=== PATIENT | female | born 1980 | race Caucasian/White ===

== ENCOUNTER 2017-06-12 17:34 | Inpatient (IN) | payer BC ==
[2017-06-13] MEDS ORDERED: fentaNYL* 50 MCG/ML 2 ML VIAL (100 MCG VIAL) IV SLOW PU ONE ×2 (02:01→06:05)
[2017-06-13] MEDS ORDERED: Ondansetron INJ* 2 MG/ML VIAL IV ONE ×2 (02:03→06:05)
[2017-06-13] MEDS ORDERED: fentaNYL* 50 MCG/ML 2 ML VIAL (100 MCG VIAL) ONE (02:05)
[2017-06-13 02:15] LABS: Hematocrit 38 % (35-47); Mean Corpuscular HGB Conc 34 g/dl (31-36); Mean Corpuscular Hemoglobin 32 pg (27-31); Mean Corpuscular Volume 95 fL (80-97); Mean Platelet Volume 10 um3 (7.4-10.4); Platelet Count 169 10^3/ul (150-450); Red Blood Count 4.03 10^6/ul (4.0-5.4); Red Cell Distribution Width 14 % (10.5-15); White Blood Count 17.3 10^3/ul (3.5-10.8)
[2017-06-13] MEDS ORDERED: Ondansetron INJ* 2 MG/ML VIAL ONE (02:20)
[2017-06-13] MEDS ORDERED: OBEPIDURAL* 250 ML EPIDURAL ONE (10:04)
[2017-06-13] MEDS ORDERED: Sodium Citrate/Citric Acid* 15 ML UDC PO PRN (12:51)
[2017-06-13] MEDS ORDERED: EPHEDrine (Pressors)* 50 MG/ML VIAL IV PUSH PRN ×2 (12:51)
[2017-06-13] MEDS ORDERED: Famotidine TAB* 20 MG PO PRN (12:51)
[2017-06-13] MEDS ORDERED: Phenylephrine IV* 40 MCG/ML 10 ML SYRINGE IV PUSH PRN ×2 (12:51)
[2017-06-13] MEDS ORDERED: Oxytocin in LR* 20 UNITS/1,000 ML BAG IVPB SCH (16:00)
[2017-06-13] MEDS ORDERED: ceFOXitin 2 GM IVPREMIX* 2 GM/50 ML BAG ONE (19:32)
[2017-06-13] MEDS ORDERED: Sodium Citrate/Citric Acid* 15 ML UDC ONE (19:32)
[2017-06-13] MEDS ORDERED: Lidocaine 2% PF* 10 ML AMP ONE (19:44)
[2017-06-13] MEDS ORDERED: OXYTOCIN* 10 UNITS/ML 1 ML VIAL ONE (19:44)
[2017-06-13] MEDS ORDERED: Morphine PF AMP (0.5MG/ML)* 5 MG/10 ML AMP ONE (20:27)
[2017-06-13] MEDS ORDERED: Naloxone* 0.4 MG/ML 1 ML VIAL IV PRN ×2 (20:38→20:39)
[2017-06-13] MEDS ORDERED: Nalbuphine* 20 MG/ML 1 ML VIAL IV PRN (20:39)
[2017-06-13] MEDS ORDERED: Ondansetron INJ* 2 MG/ML VIAL IV PRN (20:39)
[2017-06-13] MEDS ORDERED: Witch Hazel PAD* JAR TOPICAL PRN (21:09)
[2017-06-13] MEDS ORDERED: RHO D Immune Globulin (HUMAN)* 300 MCG = 1,500 I.U. INJ IM ONE (21:09)
[2017-06-13] MEDS: Ketorolac INJ* 30 MG/ML 1 ML VIAL IV PUSH SCH (22:41)
[2017-06-14] MEDS ORDERED: oxyCODONE/Acetamin 5/325 MG* TAB ONE (00:03)
[2017-06-14] MEDS: oxyCODONE/Acetamin 5/325 MG* TAB PO PRN ×4 (00:15→20:27)
--- NOTE | 2017-06-14 01:58 | OP ---
DATE OF OPERATION: 06/13/17 - ROOMO #[id number] DATE OF : 82 SURGEON: Frantz Lazar MD STRATEGIC PLANNING CONSULTANT: Jasmine Vital LM. ANESTHESIOLOGIST: Dr. George. ANESTHESIA: Epidural. PRE-OP DIAGNOSES: 39 plus 3 weeks' gestation with arrest of dilation, thick meconium. POST-OP DIAGNOSES: 39 plus 3 weeks' gestation with arrest of dilation, thick meconium. OPERATIVE PROCEDURE: Primary low transverse section. ESTIMATED BLOOD LOSS: 800 cc. URINE OUTPUT: 600 cc. IV FLUIDS: 1000 cc lactated Ringer's. MATERIALS TO LAB: Cord blood and cord gases. INDICATIONS: This patient was a 37-year-old 4, para 0, who presented at 39 plus 3 weeks' gestation with early active labor. The patient had rupture of membranes which noted thick meconium, but there was very reassuring monitoring throughout her labor. The patient received an epidural and had Pitocin for augmentation of her labor. Despite excellent contractions for several hours, she did not have any progression past about 5 cm dilation. Considering this, the decision was made to proceed with a primary section for arrest of dilation. FINDINGS: Very thick meconium within the uterus. was quite large with very broad shoulders and the patient was noted to have a fairly narrow pelvis. Delivery was productive of a male weighing 9 pounds 3 ounces and time of delivery was 2016. Apgars were 1 and 9 with a first low due to the need for significant suctioning of the meconium in the trachea. COMPLICATIONS: None. DESCRIPTION OF PROCEDURE: The risks, benefits, and alternatives were described to the patient and informed consent was obtained. The patient was taken to the operating room with IV running where epidural anesthesia was induced and found to be adequate. The patient was prepped and draped in the normal sterile fashion in the dorsal supine position with leftward tilt. A Pfannenstiel skin incision was made with a scalpel and this was carried down to the underlying fascia sharply. The fascia was then scored in the midline with the scalpel. The incision was extended using Aguilar scissors. The rectus muscles were dissected off the rectus fascia using blunt and sharp dissection. The rectus muscles were in the midline bluntly. The peritoneum was also entered bluntly. A bladder blade was placed. A bladder flap was created sharply using Metzenbaum scissors. A low transverse uterine incision was made with the scalpel. This was carried down to the amniotic cavity which was productive of very thick meconium stained fluid. The incision was extended with blunt traction. The head was elevated to the level of the incision without difficulty and delivered through the incision. The shoulders were tight in the incision, so the lower arm was able to get delivered. The upper shoulder was still quite difficult, but successfully delivered as well. With fundal pressure , the body then delivered without difficulty. The had good tone and cried immediately on delivery. The cord was doubly clamped and cut. The infant was then handed to the awaiting it network administrator. Cord blood was collected. The placenta then delivered with manual extraction. The uterus was then exteriorized and cleared of all clots and debris. The uterine incision was reapproximated using 0 Polysorb in a running-locked fashion. A second layer of imbricating sutures of 0 Polysorb was also placed with good hemostasis. The posterior cul-de-sac was irrigated with saline. The uterus was then returned to the abdomen, and the incision was reinspected and noted to be hemostatic. The peritoneum was closed with 3-0 Polysorb in a running fashion. The fascia was closed with 0 Polysorb in a running fashion. The subcutaneous tissues were reapproximated using 3-0 Polysorb in interrupted sutures. The skin was then closed with 4-0 Monocryl in a subcuticular stitch. Mastisol and Steri-Strips were placed over the incision which was then covered with a sterile bandage. The patient tolerated the procedure well. Sponge, lap, and needle counts were correct x2. [id number]/[facility] #: [id number] [facility] HILL HOSPITALSebastien
[2017-06-14] MEDS: Ibuprofen TAB* 400 MG PO SCH ×3 (04:45→10:16)
[2017-06-14 06:24] LABS: ABS Basophils 0 10^3/ul (0-0.2); ABS Eosinophils 0 10^3/ul (0-0.6); ABS Lymphocytes 1.6 10^3/ul (1.0-4.8); ABS Monocytes 1.4 10^3/ul (0-0.8); ABS Neutrophils 12.8 10^3/ul (1.5-7.7); ABS Nucleated RBC 0 10^3/ul; Eosinophil % 0.1 % (0-6); Hematocrit 32 % (35-47); Hemoglobin 10.9 g/dl (12.0-16.0); Lymphocyte % 9.8 % (25-47); Mean Corpuscular HGB Conc 34 g/dl (31-36); Mean Corpuscular Hemoglobin 33 pg (27-31); Mean Corpuscular Volume 96 fL (80-97); Mean Platelet Volume 10 um3 (7.4-10.4); Nucleated Red Blood Cells % 0; Platelet Count 130 10^3/ul (150-450); Red Blood Count 3.34 10^6/ul (4.0-5.4); Red Cell Distribution Width 15 % (10.5-15); White Blood Count 15.9 10^3/ul (3.5-10.8)
[2017-06-14] MEDS: Simethicone TAB* 80 MG TAB.CHEW PO SCH ×4 (08:48→20:27)
[2017-06-14] MEDS: Docusate CAP* 100 MG PO SCH ×3 (08:48→20:27)
[2017-06-14] MEDS ORDERED: Ferrous Gluconate TAB* 324 MG TAB PO SCH (09:00)
[2017-06-14] MEDS ORDERED: Ibuprofen TAB* 600 MG ONE (15:54)
[2017-06-14] MEDS: Ibuprofen TAB* 600 MG PO SCH ×2 (16:00→22:52)
[2017-06-14] MEDS ORDERED: Ibuprofen TAB* 600 MG PO SCH (22:00)
[2017-06-15] MEDS: oxyCODONE/Acetamin 5/325 MG* TAB PO PRN ×5 (02:53→20:25)
[2017-06-15] MEDS: Ibuprofen TAB* 600 MG PO SCH ×3 (03:52→16:22)
[2017-06-15] MEDS: Docusate CAP* 100 MG PO SCH ×3 (08:05→20:25)
[2017-06-15] MEDS: Simethicone TAB* 80 MG TAB.CHEW PO SCH ×4 (08:06→20:25)
[2017-06-15] MEDS: Ketorolac INJ* 30 MG/ML 1 ML VIAL IV PUSH SCH (20:34)
[2017-06-15] MEDS: OBEPIDURAL* 250 ML EPIDURAL SCH (20:35)
[2017-06-16] MEDS: Ibuprofen TAB* 600 MG PO SCH ×3 (01:14→16:00)
[2017-06-16] MEDS: oxyCODONE/Acetamin 5/325 MG* TAB PO PRN ×4 (01:16→14:23)
[2017-06-16] MEDS: Docusate CAP* 100 MG PO SCH ×2 (07:37→14:23)
[2017-06-16] MEDS: Simethicone TAB* 80 MG TAB.CHEW PO SCH ×2 (07:37→14:23)
[2017-06-16 08:24] VITALS: BP 135/85
--- NOTE | 2017-06-16 13:37 | PTEDU ---
Patient Name: JUDY GOLDBERG JUDY GOLDBERG selected video: Never Ever Shake a Baby to view on 06/16/2017 at 1:36:48 PM [id number]
== END 2017-06-16 16:20 | disposition home or self-care (01) | DRG 540 ==
LOC: MCHOBOUT 17:34 → MCHOB 19:56
PROVIDERS: ADMIT Midwife; ATTEND Midwife
PROC: 10907ZC Drainage of Amniotic Fluid, Therapeutic from Products of Conception, Via Natural or Artificial Opening (ICD-10-PCS; 2017-06-13)
PROC: 10D00Z1 Extraction of Products of Conception, Low, Open Approach (ICD-10-PCS; principal; 2017-06-13 19:58)
DX: O62.0 Primary inadequate contractions (principal); O77.0 Labor and delivery complicated by meconium in amniotic fluid; Z3A.39 39 weeks gestation of pregnancy; Z37.0 Single live birth
CPT/HCPCS: 36415; 85025; 85027; 85461; 86850; 86900; 86901; A9270-GY; J0694; J1885; J2001; J2405; J2590; J2790; J3010

== ENCOUNTER 2019-12-13 12:30 | Inpatient (IN) ==
[2019-12-13 13:41] LABS: Hematocrit 39 % (35-47); Mean Corpuscular HGB Conc 34 g/dL (31-36); Mean Corpuscular Hemoglobin 32 pg (27-31); Mean Corpuscular Volume 96 fL (80-97); Mean Platelet Volume 7.9 fL (7.4-10.4); Platelet Count 317 10^3/uL (150-450); Red Blood Count 4.02 10^6 /uL (3.70-4.87); Red Cell Distribution Width 14 % (10-15); White Blood Count 10.1 10^3/uL (3.5-10.8)
[2019-12-13] MEDS ORDERED: Lactated Ringers 1000 ml BAG 1,000 ML IV ONE (14:41)
[2019-12-13 14:54] LABS: Urine Benzodiazepine Screen None Detected (None Detect); Urine Opiates Screen None Detected (None Detect)
[2019-12-13] MEDS ORDERED: Lactated Ringers 1000 ml BAG 1,000 ML IV SCH ×2 (15:00→17:00)
[2019-12-13] MEDS ORDERED: ceFOXitin 2 GM IVPREMIX (*) 2 GM/50 ML BAG IVPB ONE (15:03)
[2019-12-13] MEDS ORDERED: Sodium Citrate/Citric Acid LIQ 15 ML UDC ONE (15:14)
[2019-12-13] MEDS ORDERED: Oxytocin 10 UNITS/ML 1 ML VIAL ONE (15:24)
[2019-12-13] MEDS ORDERED: Morphine PF AMP (0.5MG/ML) 5 MG/10 ML AMP ONE (15:24)
[2019-12-13] MEDS ORDERED: Bupivacaine 0.5% SDV PF 30ML VIAL ONE (15:25)
[2019-12-13] MEDS ORDERED: Phenylephrine 40 mcg/mL 10mL (400mcg) SYRINGE ONE (15:48)
[2019-12-13] MEDS ORDERED: Dexamethasone IV 4 MG/ML VIAL 1 ml VIAL ONE (16:26)
[2019-12-13] MEDS ORDERED: Glycerin ADULT 2.4 gm SUPP PR PRN (16:52)
[2019-12-13] MEDS ORDERED: Dibucaine 1% OINT 28.35 GM TUBE PR PRN (16:52)
[2019-12-13] MEDS ORDERED: Witch Hazel PAD JAR TOPICAL PRN (16:52)
[2019-12-13] MEDS ORDERED: Naloxone 0.4 mg VIAL 0.4 mg/ml 1 ml VIAL IV PRN ×2 (17:00→17:01)
[2019-12-13] MEDS ORDERED: Acetaminophen IV 1 GM/100ML 1,000 MG/100 ML VIAL IVPB ONE (17:00)
[2019-12-13] MEDS ORDERED: DiMENhydriNATE IV 50 mg/ml 1 ml VIAL IV PUSH PRN (17:01)
[2019-12-13] MEDS ORDERED: HYDROcodone/ACETAMIN 5/325 mg TAB PO PRN (17:01)
[2019-12-13] MEDS ORDERED: Ondansetron 4 mg VIAL 2 MG/ML 2 ml VIAL IV PRN (17:01)
[2019-12-13] MEDS ORDERED: diPHENhydraMINE IV 50 MG/ML 1 ml VIAL (BENADRYL) IV PRN (17:01)
[2019-12-13] MEDS ORDERED: Acetaminophen IV 1 GM/100ML 100 ML ONE (17:47)
[2019-12-14 09:06] LABS: ABS Basophils 0.1 10^3/ul (0-0.2); ABS Eosinophils 0.1 10^3/ul (0-0.6); ABS Lymphocytes 1.5 10^3/ul (1.0-4.8); Eosinophil % 0.7 %; Hematocrit 34 % (35-47); Hemoglobin 11.7 g/dL (12.0-16.0); Lymphocyte % 10.7 %; Mean Corpuscular HGB Conc 35 g/dL (31-36); Mean Corpuscular Hemoglobin 33 pg (27-31); Mean Corpuscular Volume 94 fL (80-97); Mean Platelet Volume 7.6 fL (7.4-10.4); Nucleated Red Blood Cells % 0.1; Platelet Count 286 10^3/uL (150-450); Red Blood Count 3.56 10^6 /uL (3.70-4.87); Red Cell Distribution Width 14 % (10-15); White Blood Count 13.7 10^3/uL (3.5-10.8)
[2019-12-15 07:44] VITALS: BP 120/80
== END 2019-12-15 14:35 | disposition home or self-care (01) | DRG 540 ==
LOC: MCHOB 12:30
PROVIDERS: ADMIT Obstetrics & Gynecology; ATTEND Obstetrics & Gynecology